=== PATIENT | male | born 1950 | race American Indian/Alaskan Native ===

== ENCOUNTER 2019-06-29 07:09 | Outpatient (CLI) | payer MEDICARE, OTHER ==
[2019-06-29 07:48] LABS: Hematocrit 37.8 % (35.5-45.6); Hemoglobin 12.6 gm/dl (11.8-15.2); Mean Corpuscular HGB Conc 33 % (32-34); Mean Corpuscular Volume 81 fl (84-94); Platelet Count 299 K/mm3 (140-440); Red Blood Count 4.69 M/mm3 (3.65-5.03); Red Cell Distribution Width 17.9 % (13.2-15.2)
[2019-06-29 08:03] LABS: Alanine Aminotransferase 13 units/L (7-56); Albumin 4.3 g/dL (3.9-5); BUN/Creatinine Ratio 16; Blood Urea Nitrogen 13 mg/dL (9-20); Calcium 9.4 mg/dL (8.4-10.2); Chol/HDL Ratio 3.25 %; HDL Cholesterol 43 mg/dL (40-59); Hemolysis Index 8; LDL Cholesterol,Direct 102 mg/dL (50-130)
--- NOTE | 2019-06-29 09:09 | Cat Scan Report ---
CT chest with contrast INDICATION : LEFT LOWER LOBE NODULE. TECHNIQUE: 100 mL of intravenous contrast administered. All CT scans at this location are performed using CT dose reduction for ALARA by means of automated exposure control. COMPARISON: None. FINDINGS: There is biapical pleural thickening/scarring in this patient with very mild emphysema. Th ere is minimal dependent atelectasis in the left lung base. The lungs are otherwise clear with no pul monary nodule or consolidation identified. Normal heart size. There is mild atherosclerotic disease within the coronary arteries. No pathologic mediastinal adenopathy. Limited imaging of the upper abdomen shows a simple cyst in the upper pole the right kidney and tiny cyst in the anterior hepatic segment of the liver. Mild bilateral adrenal thickening is present. Dege nerative changes are present in the spine with nothing acute. IMPRESSION: No acute abnormality. Clear lungs. No nodule or consolidation identified. Signer Name: Qasim Dubon MD Signed: 06/29/2019 9:05 AM Workstation Name: [id number]
== END 2019-06-29 07:10 | disposition home or self-care (01) ==
LOC: CT 07:09
PROVIDERS: ATTEND Internal Medicine
DX: R91.1 Solitary pulmonary nodule (principal); J45.909 Unspecified asthma, uncomplicated; E78.00 Pure hypercholesterolemia, unspecified; I10 Essential (primary) hypertension
CPT/HCPCS: 36415; 71260; 80053; 80061; 84436; 84443; 85027; Q9967

== ENCOUNTER 2021-07-11 11:15 | Outpatient (CLI) | payer MEDICARE, OTHER ==
--- NOTE | 2021-07-12 09:53 | Electrocardiograph Report ---
[facility] Test Date: 2021-07-11 Test Time: 11:38:28 Pat Name: GABBY PRUITT Department: Room: Gender: M 3D Designer: KAI : [id number] Requested By: JEREMIAH MAE Order Number: [id number] Reading MD: Rajeev Christiansen Measurements Intervals [place] Rate: 54 P: 39 NH: 208 QRS: 16 QRSD: 102 T: 73 QT: 430 QTc: 410 Interpretive Statements Sinus rhythm No previous ECG available for comparison Electronically Signed On 07-12-2021 9:53:32 EST by Rajeev Christiansen
== END 2021-07-11 11:16 | disposition home or self-care (01) ==
LOC: CARD 11:15
PROVIDERS: ATTEND Internal Medicine
DX: Z01.818 Encounter for other preprocedural examination (principal)
CPT/HCPCS: 93005